=== PATIENT | female | born 1955 | race Caucasian/White ===

== ENCOUNTER → 2019-05-26 | Outpatient (CLI) | payer OTHER ==
--- NOTE | 2019-05-26 17:09 | RADIOLOGY REPORT (SQ) ---
EXAM DESCRIPTION: MRI HEAD WITHOUT COMPLETED DATE/TIME: 05/26/2019 4:55 pm REASON FOR STUDY: H53.2 DIPLOPIA H53.2 DIPLOPIA COMPARISON: None. TECHNIQUE: Multiplanar imaging includes non-contrasted T1, T2, FLAIR, and diffusion with ADC map seq uences. Images stored on PACS. LIMITATIONS: None. FINDINGS: ANATOMY: No anomalies. Normal vascular flow voids. Pituitary fossa normal. CSF SPACES: Normal in size and contour. No hemorrhage. CEREBRUM: Sulci and gyri normal in size and contour. Normal white matter signal on FLAIR imaging. No evidence of hemorrhage, mass, or extraaxial fluid collection. POSTERIOR FOSSA: No signal alteration. No hemorrhage. No edema, masses or mass effect. Internal franco tory canals, cerebello-pontine angles, mastoids normal. DIFFUSION IMAGING: Focal areas of restricted diffusion in the central staci, right occipital lobe, and medial right temporal lobe. Similar tiny focal area of restricted diffusion in the right middle cer ebellar peduncle. ORBITS: No masses. Globes normal. PARANASAL SINUSES: No fluid levels. Mucosa normal. OTHER: No other significant finding. IMPRESSION: SEVERAL FOCAL AREAS OF RESTRICTED DIFFUSION DESCRIBED ABOVE, CONSISTENT WITH RECENT L ACUNAR INFARCTS. EVIDENCE OF ACUTE STROKE: YES. RIGHT JUNIOR ART DIRECTOR. COMMENT: The findings were sent to the Radiology Results Communication Center at 17:03 on 9 to be communicated to a licensed caregiver. TECHNICAL DOCUMENTATION: JOB ID: [id number] [employer]- All Rights Reserved Reading location - IP/workstation name: [email or web address]
== END ==
LOC: RAD 15:47
PROVIDERS: ATTEND Internal Medicine
DX: H53.2 Diplopia (principal)
CPT/HCPCS: 70551